=== PATIENT | male | born 1945 | race Caucasian/White ===

== ENCOUNTER → 2017-03-18 | Outpatient (CLI) | payer BC ==
[2017-03-18 10:09] LABS: ALANINE AMINOTRANSFERASE 39 U/L (21-72); ALBUMIN 4.2 g/dL (3.5-5.0); ALKALINE PHOSPHATASE 63 U/L (38-126); ASPARTATE AMINO TRANSFERASE 24 U/L (17-59); BILIRUBIN,DIRECT 0.3 mg/dL (0.0-0.4); BILIRUBIN,TOTAL 0.9 mg/dL (0.2-1.3); CHOLESTEROL 161.25 mg/dL (0-200); Direct HDL 37 mg/dL (>40); TOTAL PROTEIN 7.2 g/dL (6.3-8.2); TRIGLYCERIDES 89 mg/dL (<150)
[2017-03-18 10:25] LABS: DIRECT LDL 115 mg/dL (<100)
== END ==
LOC: OD 09:01
PROVIDERS: ATTEND Specialist
DX: E78.5 Hyperlipidemia, unspecified (principal); I10 Essential (primary) hypertension; I25.10 Atherosclerotic heart disease of native coronary artery without angina pectoris; I25.2 Old myocardial infarction; I42.9 Cardiomyopathy, unspecified; I66.9 Occlusion and stenosis of unspecified cerebral artery; R01.1 Cardiac murmur, unspecified; R09.89 Other specified symptoms and signs involving the circulatory and respiratory systems; I48.91 Unspecified atrial fibrillation; I48.92 Unspecified atrial flutter; Z79.899 Other long term (current) drug therapy; Z95.1 Presence of aortocoronary bypass graft
CPT/HCPCS: 36415; 80061; 80076

== ENCOUNTER → 2017-11-23 | Outpatient (CLI) | payer MEDICARE ==
--- NOTE | 2017-11-23 12:17 | RADIOLOGY REPORT (SQ) ---
EXAM DESCRIPTION: MRI RT UPPER JOINT WITHOUT COMPLETED DATE/TIME: 11/23/2017 11:17 am REASON FOR STUDY: PAIN IN RIGHT SHOULDER (M25.511) M25.511 PAIN IN RIGHT SHOULDER COMPARISON: Rib detail films 01/19/2013 TECHNIQUE: Right shoulder images acquired and stored on PACS. Multiplanar imaging to include fat sen sitive sequences such as T1, water sensitive sequences such as FST2/STIR, cartilage sensitive sequenc es such as FSPD/gradient-echo sequences. LIMITATIONS: None. FINDINGS: BONE MARROW AND CORTEX: No worrisome bone lesions or marrow replacement. No occult fractur es. JOINT OR BURSAL EFFUSION: No significant joint or bursal fluid. No suggestion of loose bodies. GLENO-HUMERAL ARTICULATION: Mild diffuse chondromalacia. No bulky bony spurring or subcortical edema ACROMION AND AC JOINT: Type 2 acromion fluid in the AC joint and mild AC joint bony spurring best sh own on sagittal image 10 and coronal image 10. ROTATOR CUFF AND INTERVAL: There is a diffuse full-thickness tear of the supraspinatus tendon extendi ng into the anterior half of the infraspinatus tendon. There is atrophy of the supraspinatus muscle on sagittal image 16. Rotator interval is torn. LABRUM AND BICEPS LABRAL COMPLEX: Intra-articular long head biceps tendon is high signal from tendi nopathy. There is a superior labral tear at its attachment, extending anteriorly and posteriorly wit hout paralabral cyst. This is best shown on axial gradient echo T2 images 6-9. REMAINDER OF LABRUM AND IGHL : No gross tear or paralabral cyst formation. Labral evaluation is less than optimal without joint distention. No thickening of IGHL to suggest adhesive capsulitis. PERIARTICULAR AND ADJACENT SOFT TISSUES: No masses or abnormal nodes. OTHER: No other significant finding. IMPRESSION: Full-thickness supraspinatus tear extending into the anterior half of the infraspinatus tendons Superior labral tear TECHNICAL DOCUMENTATION: JOB ID: [id number]- All Rights Reserved Reading location - IP/workstation name: [email or web address] [id number]
== END ==
LOC: RAD 10:31
PROVIDERS: ATTEND Orthopaedic Surgery Sports Medicine
DX: M25.511 Pain in right shoulder (principal); M75.121 Complete rotator cuff tear or rupture of right shoulder, not specified as traumatic

== ENCOUNTER 2019-02-10 13:15 | Emergency (ER) | payer MEDICARE ==
--- NOTE | 2019-02-10 14:12 | ER Document Report ---
ED Medical Screen (RME) - General Chief Complaint: Near Syncope Stated Complaint: NEAR SYNCOPE Time Seen by Provider: 02/10/19 14:07 Primary Care Provider: HOLLI ZAMORA MD [Primary Care Provider] - Follow up as needed Notes: Patient is a 73-year-old male presents to the emergency department for near syncopal episode. 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 States he was bent over the home plate and feels as though he got overheated. Patient's denying chest pain, shortness of breath, headache, dizziness at this time. Patient is very nonchalant about the events. According to EMS report patient d id have a near syncopal episode was noted to be tachycardic upon arrival. EMS report also states patient was in A. fib At a rate of 116. There are no EKG strips with the patient's report. Patient s tates he does not have a history of atrial fibrillation. EKG ordered at this time. GENERAL: Alert, interacts well. No acute distress. LUNGS: Clear to auscultation bilaterally, no wheezes, rales, or rhonchi. No respiratory distress. HEART: Irregular rate and rhythm. I have greeted and performed a rapid initial assessment of this patient. A comprehensive ED assessment and evaluation of the patient, analysis of test results and completion of the medical decision making process will be conducted by additional ED providers. I have specifically instructed the patient or family members with the patient to immediately return to any nursing staff should anything change in the patient's condition or with their chief complaint. This medical record was dictated with voice recognizing software. There may be grammatical, syntax errors that are unintended. TRAVEL OUTSIDE OF THE [place] IN LAST 30 DAYS: No - Related Data Allergies/Adverse Reactions: propoxyphene HCl [From Darvon] Allergy (Verified 02/10/19 13:24) Past Medical History - Social History Frequency of alcohol use: None Drug Abuse: None - Past Medical History Cardiac Medical History: Reports: Hx Hypercholesterolemia, Hx Hypertension Pulmonary Medical History: Denies: Hx Tuberculosis Renal/ Medical History: Denies: Hx Peritoneal Dialysis Past Surgical History: Reports: Hx Cardiac Surgery - CABG x2, Hx Coronary Artery Bypass Graft - 2006. Denies: Hx Pacemaker - Immunizations Hx Diphtheria, Pertussis, Tetanus Vaccination: No Physical Exam - Vital signs Vitals: Temp Pulse Resp BP Pulse Ox 97.7 F 95 16 142/87 H 98 02/10/19 13:37 02/10/19 13:37 02/10/19 13:37 02/10/19 13:37 02/10/19 13:37 Course - Vital Signs Vital signs: Temp Pulse Resp BP Pulse Ox 97.7 F 95 16 142/87 H 98 02/10/19 13:37 02/10/19 13:37 02/10/19 13:37 02/10/19 13:37 02/10/19 13:37 Doctor's Discharge - Discharge Referrals: HOLLI ZAMORA MD [Primary Care Provider] - Follow up as needed
[2019-02-10 16:14] LABS: ABSOLUTE BASOPHILS # (AUTO) 0.1 10^3/uL (0.0-0.2); ABSOLUTE LYMPHOCYTES (AUTO) 2.4 10^3/uL (0.5-4.7); ABSOLUTE MONOCYTES (AUTO) 1.3 10^3/uL (0.1-1.4); ABSOLUTE NEUT (AUTO) 8.3 10^3/uL (1.7-8.2); BASOPHILS % (AUTO) 0.7 % (0-2); EOSINOPHILS % (AUTO) 0.3 % (0-6); HEMATOCRIT 49.8 % (37.9-51.0); HEMOGLOBIN 16.9 g/dL (13.5-17.0); LYMPHOCYTES % (AUTO) 19.8 % (13-45); MEAN CORPUSCULAR HEMOGLOBIN 31.4 pg (27.0-33.4); MEAN CORPUSCULAR VOLUME 92 fl (80-97); MONOCYTES % (AUTO) 10.5 % (3-13); PLATELET COUNT 197 10^3/uL (150-450); RED CELL DISTRIBUTION WIDTH 14.7 % (11.5-14.0); SEGMENTED NEUTROPHILS % (AUTO) 68.7 % (42-78); TOTAL CELLS COUNTED % (AUTO) 100 %; WHITE BLOOD COUNT 12.1 10^3/uL (4.0-10.5)
--- NOTE | 2019-02-10 16:20 | RADIOLOGY REPORT (SQ) ---
EXAM DESCRIPTION: CHEST SINGLE VIEW COMPLETED DATE/TIME: 02/10/2019 4:08 pm REASON FOR STUDY: syncope COMPARISON: None. EXAM PARAMETERS: NUMBER OF VIEWS: One view. TECHNIQUE: Single frontal radiographic view of the chest acquired. RADIATION DOSE: NA LIMITATIONS: None. FINDINGS: LUNGS AND PLEURA: No acute infiltrates. No pleural effusions. MEDIASTINUM AND HILAR STRUCTURES: No masses. Contour normal. HEART AND VASCULAR STRUCTURES: Normal heart and pulmonary vasculature. BONES: No acute findings. HARDWARE: Changes of median sternotomy and CABG. OTHER: No other significant finding. IMPRESSION: No acute disease. TECHNICAL DOCUMENTATION: JOB ID: [id number] 2010 [employer]- All Rights Reserved Reading location - IP/workstation name: [email or web address]
[2019-02-10] MEDS ORDERED: NORMAL SALINE 1000 ML 1,000 ML IV ONE (16:28)
--- NOTE | 2019-02-10 16:28 | ER Document Report ---
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 Was a very [place] day in the [place]. Patient stated he did not drink enough water. He began to feel very weak lightheaded. He denies any headache denies blurred vision denies extremity numbness tingling or weakness. Patient stated that he felt as if he could not do it anymore or he was going to pass out he took himself out of the game and family drove him here. Since he has been in the air conditioning he is feeling much better and denies any complaints he denies chest pain denies shortness of breath denies abdominal pain denies headache or blurred vision denies extremity numbness tingling or weakness. Denies black bloody or tarry stools. TRAVEL OUTSIDE OF THE [place] IN LAST 30 DAYS: No - Related Data Allergies/Adverse Reactions: propoxyphene HCl [From Darvon] Allergy (Verified 02/10/19 13:24) Past Medical History - Social History Smoking Status: Former Smoker Frequency of alcohol use: None Drug Abuse: None Family History: Reviewed & Not Pertinent Patient has suicidal ideation: No Patient has homicidal ideation: No - Past Medical History Cardiac Medical History: Reports: Hx Hypercholesterolemia, Hx Hypertension Pulmonary Medical History: Denies: Hx Tuberculosis Renal/ Medical History: Denies: Hx Peritoneal Dialysis Past Surgical History: Reports: Hx Cardiac Surgery - CABG x2, Hx Coronary Artery Bypass Graft - 2006. Denies: Hx Pacemaker - Immunizations Hx Diphtheria, Pertussis, Tetanus Vaccination: No Hx Pneumococcal Vaccination: 08/09/12 Review of Systems - Review of Systems Constitutional: Malaise. denies: Chills, Fever EENT: denies: Nose congestion Cardiovascular: denies: Chest pain Respiratory: denies: Hemoptysis, Short of breath Gastrointestinal: denies: Abdominal pain, Nausea, Vomiting Genitourinary: denies: Dysuria Musculoskeletal: denies: Back pain Neurological/Psychological: denies: Sensory change, Loss of power, Paralysis, Headaches, Numbness, Tingling -: Yes All other systems reviewed and negative Physical Exam - Vital signs Vitals: Temp Pulse Resp BP Pulse Ox 97.7 F 95 16 142/87 H 98 02/10/19 13:37 02/10/19 13:37 02/10/19 13:37 02/10/19 13:37 02/10/19 13:37 - Notes Notes: GENERAL_APPEARANCE: well_nourished, alert, cooperative, no_acute_distress, no_obvious_discomfort. VITALS: reviewed, see vital signs table. HEAD: no_swelling\tenderness on the head. EYES: PERRL, EOMI, conjunctiva_clear. NOSE: no_nasal_discharge. MOUTH: Tongue and mucous membrane THROAT: no_tonsilar_inflammation, no_airway_obstruction. no_lymphadenopathy NECK: supple, no_neck_tenderness, (-)thyromegaly. BACK: no_back_tenderness. CHEST_WALL: no_chest_tenderness. LUNGS: no_wheezing, no_rales, no_rhonchi, (-)accessory muscle use, good air exchange bilateral. HEART: normal_rate, normal_rhythm, normal_S1, normal_S2, (-)S3, (-)S4, no_murmur, no_rub. ABDOMEN: normal_BS, soft, no_abd_tenderness, (-)guarding, (-)rebound, no_organomegaly, no_abd_masses. EXTREMITIES: good pulses in all_extremities, no_swelling\tenderness in the extremities, no_edema. SKIN: warm, dry, good_color, no_rash. MENTAL_STATUS: speech_clear, oriented_X_3, normal_affect, responds_a ppropriately to questions. NEURO: Neg Motor or Sensory Deficits on exam, CN 2-12 intact, DTR 2+ symmetric x 4, No cerbellar signs Course - Re-evaluation Re-evalutation: 02/10/19 16:27 73-year-old male who had heat exposure and nearly passed out. Patient is better after being in air conditioning. He is able to orally rehydrate were also giving him some IV fluids checking some generalized labs. The patient denies chest pain or shortness of breath denies headache or blurred vision. Patient otherwise doing well triage provider put in multiple labs were monitoring him closely. But he states he feels much better after being out of the heat. 02/10/19 18:03 Patient reevaluated he is feeling good he is standing at the door waiting to leave. He is asked the nurse several times to leave. I spoke with him he states he is feeling good now. This is likely due to heat syncope and just heat exposure. Encouraged him to hydrate he is comfortable going home. His EKG was initially interpreted by machine to be A. fib but there is a lot of artifact. There are obviously P waves when I evaluate the patient's monitor strip. He is not in A. fib at this time. Think this was just artifact on the initial twelve-lead EKG. - Vital Signs Vital signs: Temp Pulse Resp BP Pulse Ox 97.7 F 85 18 135/83 H 98 02/10/19 13:37 02/10/19 16:41 02/10/19 17:01 02/10/19 17:01 02/10/19 17:01 - Laboratory Result Diagrams: 02/10/19 15:28 02/10/19 15:28 Laboratory results interpreted by me: 02/10/19 02/10/19 02/10/19 15:28 15:28 15:28 WBC 12.1 H RDW 14.7 H Absolute Neutrophils 8.3 H Creatinine 1.59 H Est GFR ( Amer) 52 L Est GFR (Non-Af Amer) 43 L Total Bilirubin 1.8 H Ur Leukocyte Esterase SMALL H - Diagnostic Test Radiology reviewed: Reports reviewed Radiology results interpreted by me: 02/10/19 18:01 Chest X-Ray 02/10/19 14:25 IMPRESSION: No acute disease. - EKG Interpretation by Me EKG shows normal: Sinus rhythm Rate: Normal Additional EKG results interpreted by me: 02/10/19 18:02 The EKG machine interpret this is A. fib but there was a lot of artifact. There are P waves easily seen looking at the patient's quality assurance monitor chassis he is in sinus rhythm with P waves noticeable. He is not in A. fib and certainly not any rapid ventricular response. Discharge - Discharge Clinical Impression: Heat syncope, initial encounter, Dehydration Condition: Good Disposition: HOME, SELF-CARE Instructions: Near Syncopal Episode ([facility]), Dehydration ([facility]) Referrals: HOLLI ZAMORA MD [ASSOCIATE] - Follow up as needed
[2019-02-10 16:31] LABS: ALANINE AMINOTRANSFERASE 40 U/L (21-72); ALBUMIN 4.4 g/dL (3.5-5.0); ALKALINE PHOSPHATASE 68 U/L (38-126); ANION GAP 11 (5-19); ASPARTATE AMINO TRANSFERASE 30 U/L (17-59); BILIRUBIN,DIRECT 0.4 mg/dL (0.0-0.4); BILIRUBIN,TOTAL 1.8 mg/dL (0.2-1.3); BLOOD UREA NITROGEN 18 mg/dL (7-20); CARBON DIOXIDE 28 mmol/L (22-30); CHLORIDE 101 mmol/L (98-107); CREATINE KINASE 156 U/L (55-170); GLUCOSE 82 mg/dL (75-110); POTASSIUM 4.2 mmol/L (3.6-5.0); TOTAL PROTEIN 7.5 g/dL (6.3-8.2)
[2019-02-10 16:40] LABS: APPEARANCE,URINE SLIGHTLY-CLOUDY; BILIRUBIN,URINE NEGATIVE (NEGATIVE); COLOR,URINE YELLOW; GLUCOSE, URINE NEGATIVE (NEGATIVE); KETONES,URINE NEGATIVE (NEGATIVE); LEUKOCYTE ESTERASE,URINE SMALL (NEGATIVE); NITRITE,URINE NEGATIVE (NEGATIVE); PROTEIN,URINE NEGATIVE (NEGATIVE); URINE SPECIFIC GRAVITY 1.014; UROBILINOGEN,URINE NEGATIVE mg/dL (<2.0)
[2019-02-10 16:42] LABS: CREATINE KINASE MB 2.19 ng/mL (<4.55)
[2019-02-10 16:44] LABS: TROPONIN I < 0.012 ng/mL
[2019-02-10 18:09] VITALS: BP 130/93
--- NOTE | 2019-02-11 09:30 | EKG REPORT ---
SEVERITY:- ABNORMAL ECG - ATRIAL FIBRILLATION, V-RATE 72-101 : Confirmed by: Karmen Kwong MD 11-Feb-2019 09:29:31
== END 2019-02-10 18:23 | disposition home or self-care (01) ==
LOC: ER 13:15
DX: E86.0 Dehydration (principal); R55 Syncope and collapse; R53.1 Weakness; X30.XXXA Exposure to excessive natural heat, initial encounter; E78.00 Pure hypercholesterolemia, unspecified; I10 Essential (primary) hypertension; Z95.1 Presence of aortocoronary bypass graft
CPT/HCPCS: 93005; 99284; 96360; 36415; 82553; 82550; 85025; 80053; 81001; 84484; 71045; 93010; J7030

== ENCOUNTER → 2020-03-07 | Outpatient (CLI) | payer MEDICARE ==
--- NOTE | 2020-03-07 12:18 | RADIOLOGY REPORT (SQ) ---
EXAM DESCRIPTION: CHEST PA/LATERAL IMAGES COMPLETED DATE/TIME: 03/07/2020 11:07 am REASON FOR STUDY: SHORTNESS OF BREATH COMPARISON: 02/10/2019 EXAM PARAMETERS: NUMBER OF VIEWS: two views TECHNIQUE: Digital Frontal and Lateral radiographic views of the chest acquired. RADIATION DOSE: NA LIMITATIONS: none FINDINGS: LUNGS AND PLEURA: No opacities, masses or pneumothorax. No pleural effusion. MEDIASTINUM AND HILAR STRUCTURES: No masses or contour abnormalities. HEART AND VASCULAR STRUCTURES: Heart normal size. No evidence for failure. BONES: No acute findings. HARDWARE: Sternotomy wires are in place. OTHER: No other significant finding. IMPRESSION: NO SIGNIFICANT RADIOGRAPHIC FINDING IN THE CHEST. TECHNICAL DOCUMENTATION: JOB ID: [id number] 2010 [employer]- All Rights Reserved Reading location - IP/workstation name: [email or web address]
== END ==
LOC: OD 09:28
PROVIDERS: ATTEND Internal Medicine
DX: R06.02 Shortness of breath (principal)
CPT/HCPCS: 71046